=== PATIENT | female | born 1955 | race Caucasian/White ===

== ENCOUNTER → 2023-02-09 13:04 | Outpatient (BNVA) | payer MEDICARE, OTHER, SELFPAY | PROVIDERS: PCP Internal Medicine; Referring Provider Internal Medicine; Visit Provider Student in an Organized Health Care Education/Training Program | DX: S83.412A Sprain of medial collateral ligament of left knee, initial encounter (principal); S83.512A Sprain of anterior cruciate ligament of left knee, initial encounter; X58.XXXA Exposure to other specified factors, initial encounter | CPT/HCPCS: 99203 ==

== ENCOUNTER → 2023-03-09 12:52 | Outpatient (BNVA) | payer MEDICARE, OTHER, SELFPAY | PROVIDERS: PCP Internal Medicine; Referring Provider Internal Medicine; Visit Provider Student in an Organized Health Care Education/Training Program | DX: S83.512D Sprain of anterior cruciate ligament of left knee, subsequent encounter (principal); S83.412D Sprain of medial collateral ligament of left knee, subsequent encounter; X58.XXXD Exposure to other specified factors, subsequent encounter | CPT/HCPCS: 99213 ==

== ENCOUNTER → 2023-04-06 10:46 | Outpatient (BNVA) | payer MEDICARE, OTHER, SELFPAY | PROVIDERS: PCP Internal Medicine; Referring Provider Internal Medicine; Visit Provider Student in an Organized Health Care Education/Training Program | DX: S83.512A Sprain of anterior cruciate ligament of left knee, initial encounter (principal); S83.412A Sprain of medial collateral ligament of left knee, initial encounter; X58.XXXA Exposure to other specified factors, initial encounter | CPT/HCPCS: 99214 ==

== ENCOUNTER 2023-04-22 05:58 | Day surgery (SDC) | payer MEDICARE, OTHER, SELFPAY ==
[2023-04-22] VITALS (17 sets, daily range): BP systolic 100–180; BP diastolic 58–97; PULSE 44–60; RESP 1–18; TEMP 36–36.6; O2SAT 98–100; BMI 24.0
[2023-04-22] MEDS: Lactated Ringers 1,000 ML 30 ML IV (06:39)
--- NOTE | 2023-04-22 06:49 | W.ANESPRE ---
General Info Date of Service Date Performed: 04/22/23 Height: 5 ft Weight: 56 kg Body Mass Index (BMI): 24.0 Surgical Procedure: Operation Date: 04/22/23 08:10 Proposed Procedure Side Surgeon p Knee ACL Reconstruction (Allograft) Left Teo Nj MD Meds Allergies and Home Medications Allergies Allergy/AdvReac Type Severity Reaction Status Date / Time Sulfa (Sulfonamide Allergy Unknown Skin Rash Verified 04/22/23 06:16 Antibiotics) Home Medication Medication Instructions Recorded cholecalciferol (vitamin D3) 25 25 mcg PO DAILY 02/02/23 mcg (1,000 unit) capsule multivitamin 1 tab PO DAILY 02/02/23 aspirin 81 mg tablet,delayed 81 mg PO DAILY Prevent blood clot 04/22/23 release 14 days #14 tabs naproxen 250 mg tablet 250 - 500 mg (1 - 2 x 250 mg) PO 04/22/23 BID PRN Moderate pain #40 tabs tramadol 50 mg tablet 50 mg PO Q6H PRN moderate or 04/22/23 severe pain #12 tabs Current Visit Medications: Current Medications Generic Name Dose Route Start Last Admin Trade Name Freq PRN Reason Stop Dose Admin Ringer's Solution 1,000 mls @ 30 mls/hr 04/22/23 06:00 04/22/23 06:39 IV 05/21/23 23:59 30 mls/hr INFUSION ESTELA Administration Cefazolin Sodium/Dextrose 2 gm in 50 mls @ 100 mls/hr 04/22/23 06:00 Ancef Duplex IVPB 04/22/23 16:00 PREOP ESTLEA Tranexamic Acid/Sodium Chloride 100 mls @ 600 mls/hr 04/22/23 06:00 IVPB 04/22/23 16:00 PREOP ESTELA IV Miscellaneous Supplies 1 each 04/22/23 06:00 Iv Access IV 05/21/23 23:59 DIRECTED ESTELA Sodium Chloride 0 ml 04/22/23 06:00 Normal Saline Flush 10 Ml Syr IV 05/21/23 23:59 PRN PRN Sodium Chloride 0 ml 04/22/23 06:00 Normal Saline 10 Ml Vial IJ 05/21/23 23:59 DIRECTED PRN Sterile Water 0 ml 04/22/23 06:00 Water,Injection,Sterile 10 Ml Vial IJ 05/21/23 23:59 DIRECTED PRN PFSH Active Problems Active Problems: Problem Status Onset Code Tear of medial collateral ligament of left knee S83.412A Left ACL tear S83.512A Osteoporosis M81.0 Hyperlipidemia E78.5 Actinic keratosis L57.0 Medical History Medical History Squamous cell carcinoma of skin Tobacco Smoking/Tobacco Use Status: Never Alcohol Alcohol Intake: current Alcohol intake frequency: holidays/special occasions only Substance Use Substance use: Never Substance use type: does not use Vital Signs and Lab Results Vital Signs Most Recent Vital Signs in EMR: Most Recent Vital Signs Temp Pulse Resp BP Pulse Ox 36.2 C L 60 16 130/91 H 100 04/22/23 06:17 04/22/23 06:17 04/22/23 06:17 04/22/23 06:17 04/22/23 06:17 Lab Results Blood Type / Crossmatch: No Data to Display Complete Blood Count: No Data to Display Complete Metabolic Panel: No Data to Display Liver Function Panel: No Data to Display Coagulation Panel: No Data to Display Cardiac Panel: No Data to Display Arterial Blood Gas: No Data to Display Venous Blood Gas: No Data to Display Pancreas Panel: No Data to Display Thyroid Panel: No Data to Display Infectious Disease: No Data to Display Blood Cultures: No Data to Display Toxicology Panel: No Data to Display Anesthesia Assessment and Plan Anesthesia History Personal History: No History of Anesthesia Complications Family History: No Family History of Anesthesia Complications Exercise Tolerance Exercise Tolerance: Metabolic Equivalents>4 Pertinent Negatives Pertinent Negatives: No Symptoms of GERD, No Major Cardiovascular Symptoms or Complaints and No Major Pulmonary Symptoms or Complaints Cardiac & Pulmonary Exam Cardiac Exam: Normal S1/S2 Heart Sounds Pulmonary Exam: Clear Bilateral Breath Sounds Implantable Cardiac Device Does patient have a Pacemaker or an ICD?: No Airway Exam Known Difficult Airway: No Mallampati Class: 2 Mouth Opening: Normal (> 3cm) Thyromental Distance: Greater than 3 cm Neck Range of Motion: Full ROM Neck Circumference: Normal Teeth Condition: Normal Dentition ASA Classification ASA Score: ASA 2 Emergency Case?: No NPO Status NPO Status: NPO Clears >2 hours, Solids >8 hours Anesthesia Plan Resuscitation Status: Full Code Anesthesia Technique: General Anesthesia Airway Planned: Endotracheal Tube Pain Management: Surgeon and patient request nerve block Monitors Used: Standard Monitors and SedLine
--- NOTE | 2023-04-22 07:12 | PDOC.DSDIS_ITS ---
Date of service: 04/22/23 Time of Service: 14:00 Discharge Plan Disposition Patient Disposition: Home Condition: Stable Discharge Details Attending Provider: Teo Nj Primary Care Provider: Marcy Enciso Home Meds and New Rx's Prescriptions: New naproxen 250 mg tablet 250 - 500 mg PO BID PRN (Reason: Moderate pain) Qty: 40 0RF aspirin 81 mg tablet,delayed release (DR/EC) 81 mg PO DAILY 14 Days Qty: 14 0RF tramadol 50 mg tablet 50 mg PO Q6H PRN (Reason: moderate or severe pain) Qty: 12 0RF Continued multivitamin Tablet 1 tab PO DAILY cholecalciferol (vitamin D3) 25 mcg (1,000 unit) capsule 25 mcg PO DAILY Discharge Instructions Additional Instructions: Surgery: Left knee arthroscopy with ACL REPAIR and partial medial & lateral meniscectomy Activity: Weightbearing as tolerated. No crutches needed as soon as comfortable and stable on knee. Restore full knee extension as soon as possible. Perform early quad sets/quadriceps isometrics. Gradually increase flexion to tolerance. Recommend elevation to minimize swelling discomfort. Encourage ankle pumps and wiggle toes to improve circulation. A physical therapy prescription will be sent electronically to resume in 2 to 3 weeks. Prescriptions: Aspirin 81 mg take 1 daily to prevent a blood clot for 14 days Naproxen 250 mg take 1-2 every 12 hours with a meal as needed for moderate pain Tramadol 50 mg take every 6-8 hours as needed for severe pain You may use [id number] Tylenol (acetaminophen) as needed for mild pain. These pain medications may be taken all at once or in different combinations as needed. Also, recommend Colace (docusate) as a stool softener as surgery and pain medicine cause constipation. You may try [id number]-[id number] diphenhydramine (Benadryl) 25-50 mg nightly as a sleep aid Dressings: Leave dressing in place for 3 days. May then remove and leave open to air or cover incisions with Band-Aids. Leave the sticky Steri-Strips in buddy ce until they fall off or remove them after you shower. May shower after 5 days. Follow-up: 10-[address] Nj You may take off the leg compression stockings this evening at home. You may a lso leave them on a few days longer if you have a history of leg swelling or edema. Let us know right away if you develop any redness, drainage, fevers, chest pain, or trouble breathing. Do not drink alcohol or drive for at least 24 hours after anesthesia. Discharge Orders Discharge Orders: Discharge Order (Routine); Ordered 04/22/23 Ordered By: Zeus Westbrook DS: Diagnosis Discharge Diagnosis (1) Tear of medial collateral ligament of left knee: Status: Acute (2) Left ACL tear: Status: Acute (3) Acute medial meniscus tear of right knee: Status: Inactive (4) Degeneration of medial meniscus of left knee: Status: Acute (5) Degeneration of lateral meniscus of left knee: Status: Acute
[2023-04-22] MEDS: ceFAZolin 2 GM/50 ML BAG IVPB (08:19)
--- NOTE | 2023-04-22 08:47 | W.ANESNERVE ---
Nerve Block Single Injection Procedure Date and Time Date Performed: 04/22/23 Procedure Start: 07:31 Location Where Procedure Performed Procedure Location: Day Surgery Unit Reason Performed: Postoperative Analgesia Requesting Provider: Teo Nj Timeout Performed Timeout Performed: Yes Monitoring Used ECG, Blood Pressure, SpO2 and See EMR for corresponding vital signs Sterility Sterility: Hand Hygiene, Surgical Cap, Surgical Mask, Sterile Gloves and Chlorhexidine Sedation Given During Procedure Sedation Given (Indicate Dose Given): Versed IV Dose:: 1mg Patient Mental Status Patient Mental Status: Awake Nerve Block 1st Nerve Block: Laterality: Left Block Type: Adductor Canal Ultrasound Image Saved?: Yes Needle / Catheter Used: 80mm SonoPlex II Local Anesthetic Bolus (Indicate Dose Given): Lidocaine used for local infiltration of skin, Injected in 3-5ml increments after negative blood aspiration, Bupivacaine 0.25% Dose:: 10mL and Exparel Dose:: 10mL Additives (Indicate Dose Given): None Ultrasound: Sterile probe cover and gel used Nerve Stimulator: Supplement to Ultrasound use and No twitch or parasthesia noted < 0.5 mA Paresthesia: None Procedure Tolerated: No Complications Procedure Outcome: Successful Performed By: Muna Mckeon
[2023-04-22] MEDS: Bupivacaine 0.25% Pres-Free 30 ML VIAL (09:00)
[2023-04-22] MEDS: EPINEPHrine 10 MG/10 ML ML (09:57)
--- NOTE | 2023-04-22 10:02 | W.PM.OP ---
Date of service: 04/22/23 Time of Service: 08:30 Operative Note Operative Note DATE OF PROCEDURE: 04/22/23 PRE-OP DIAGNOSIS: Left knee: 1. Proximal ACL rupture 2. Lateral tibial plateau contusion 3. Nondisplaced proximal fibular fracture PROCEDURE: Left knee: 1. ACL REPAIR, CPT #41872 2. Partial medial & lateral meniscectomy, CPT #69856 SURGEON: Teo Nj NETWORKING TECHNOLOGY INSTRUCTOR: Zeus Westbrook ANESTHESIA TYPE: Local By Surgeon, General LMA/ETT and Primary Nerve Block Refer to Anesthesia Record ESTIMATED BLOOD LOSS: 5 TOURNIQUET TIME: 0 COMPLICATIONS: None Patient was transported to: PACU Patient's condition: stable Implants: Arthrex 4.75 mm bio composite SwiveLock Indications: Please see complete medical record for details. Findings: Exam under anesthesia: Full range of motion, stable varus and valgus stress in mild flexion. Positive increased Reid translation although relatively firm endpoint after about 8 mm of motion. Negative posterior drawer. Negative pivot shift/glide. Arthroscopic findings: Mild generalized chondromalacia. Moderate anterior and intercondylar synovitis. Mild white zone medial meniscus fraying type tearing. Largely healed vertical undersurface posterior horn lateral meniscus tearing with mild [place] fraying type tearing at the posterior horn root junction and in the central body. Procedure Description: In the operating room, general anesthesia was induced. The patient was positioned supine on the operating room table. All bony prominences were well-padded. Preoperative antibiotics were administered. The knee was prepped and draped in the usual sterile fashion. The correct patient, procedure, and side of the procedure were all verified prior to incision. Exam under anesthesia was performed. Local anesthetic containing epinephrine was infiltrated about the planned anteromedial, anterolateral, lateral distal femoral, and pretibial surgery sites. The standard high and tight anterolateral and anteromedial portals were established and a complete diagnostic arthroscopy was performed with relevant findings detailed above. A passport cannula was inserted in the anteromedial portal. The medial meniscus white zone fraying was inspected, the edges were somewhat rough and tearing was felt to be amenable to a small partial meniscectomy. The meniscal biter was used to debride the tearing type fraying to a stable still probably white zone margin through the central part of the medial meniscal body and the loose fragments were removed with a shaver which was also used to contour the meniscus to the best margin alternating working through and viewing through both portals. Similarly, in the [id number] position the lateral meniscus was inspected. There was an apparent healed posterior horn peripheral small vertical lateral meniscus tear. It probes stable. There is some fraying of the white zone near the root in the central body that was small and amenable to a similar trimming and contouring with the biter and shaver. In the intercondylar area, the redundant synovitis was removed. A small notchplasty was performed to allow best visualization of the lateral wall. The ACL was probed and had good tissue quality distally to mid substance. There was some bulbous area more proximally and high-grade partial tearing off the lateral wall. Various tissue liberator and elevators were used to ensure proper dissection of the full length of the ACL off the lateral wall in order to determine repair versus reconstruction. Given the setting including persistent subjective instability after ACL prehabilitation and isolated proximal partial rupture with good tissue quality, the decision was made to proceed with ACL repair over reconstruction. A small to moderate amount of ACL was left most posteriorly intact probably representing the anterior medial bundle. The knee scorpion was then used loaded with SutureTape FiberLink to place 2 cinch stitches about the bulbous strong part of the ACL and more proximally well incorporating the proximal ACL tissue. The knee was hyperflexed and the repair was confirmed to be appropriate to the lateral wall prepared footprint with the cuff grasper. The undersized punch was used given advanced age centrally in the exposed footprint with the prepare fibers plan to bring the tissue more proximally toward the back wall. The tap was then used and prepared socket confirmed. The repair sutures were then loaded on the SwiveLock anchor which was deployed with excellent fixation strength and good baptist of tension on the ACL. The repair was inspected under direct arthroscopic visualization and manually with anterior drawer and Reid, which were improved to about 5 mm of motion. Knee range of motion remained full and there was no impingement in full extension. Repair sutures were cut and safety stitches removed. The knee and both portals were copiously irrigated and then knee drained of arthroscopic fluid. 3-0 Monocryl was used to close the portals in a buried interrupted fashion. Mastisol, Steri-Strips, Xeroform, 4 x 4 gauze, and sterile soft roll was applied. The extremity was wrapped gently with an Eamon bandage. The patient awoke from anesthesia without complication and was transferred to the recovery room in a stable condition.
[2023-04-22] MEDS: Ketorolac 15 MG/ML VIAL IVP (10:17)
[2023-04-22] MEDS: oxyCODONE 5 MG TAB PO ×2 (11:03→12:38)
--- NOTE | 2023-04-22 12:08 | W.ANESPOSTOP ---
Postoperative Evaluation Date, Time and Location Date Performed: 04/22/23 Time Performed: 12:08 Patient Location: Day Surgery Unit Vital Signs Most Recent Imported Vital Signs: Most Recent Vital Signs Temp Pulse Resp BP Pulse Ox 36.2 C L 48 L 16 126/97 H 100 04/22/23 11:19 04/22/23 11:19 04/22/23 11:19 04/22/23 11:19 04/22/23 11:19 Pain Score Most Recent Pain Score: Most Recent Pain Score Pain Level 8 04/22/23 11:19 Assessment Mental Status: Awake (Alert & Oriented to Patient Baseline) Airway and Respiratory Function: Patent airway with normal (patient baseline) respiratory exam Cardiovascular Function: Hemodynamically Stable Hydration Status: Adequately Hydrated Nausea & Vomiting: No Nausea or Vomiting Pain: Pain is Moderate or Severe Postoperative Pain Management: Pain being addressed with medication Peripheral Nerve Block: Regional nerve block not resolved at time of post operative discharge
--- NOTE | 2023-04-22 12:41 | PT.INIE ---
PT Notes Physical Therapy Day Surgery Initial Evaluation Date: 04/22/2023 Referring Doctor: Zeus Westbrook MD PT Orders: PT CONSULT: S/P Ortho Surgery Precautions: Per Dr. Nj: Weightbearing as tolerated. No crutches needed as soon as comfortable and stable on knee. Restore full knee extension as soon as possible. Perform early quad sets/quadriceps isometrics. Gradually increase flexion to tolerance. Recommend elevation to minimize swelling discomfort. Encourage ankle pumps and wiggle toes to improve circulation. Patient Profile/Admitting Diagnosis: Rozina is a 67-year-old female with diagnosis of proximal ACL rupture, lateral tibial plateau contusion, and non-displaced proximal fibular fracture on the L and is status post ACL repair and partial medial and lateral meniscectomy on postoperative day 0. PMHX: All Active Problems (Updated 02/09/23 @ 14:05 by YANICK Faulkner) Tear of medial collateral ligament of left knee (Acute) Left ACL tear (Acute) Osteoporosis (Chronic) Hyperlipidemia (Acute) Actinic keratosis (Acute) Medical History (Updated 02/09/23 @ 14:05 by YANICK Faulkner) Squamous cell carcinoma of skin Social History/Home Situation: Lives with spouse in a private home with sick steps to enter with rails on both sides. Independent in all aspects of ADLs prior to surgery. Equipment Owned/DME: None Subjective: Reported discomfort in the L knee that minimally limited today's mobility assessment. Objective: General Observation: ACEwraps to left knee. Mental Status: A and O x 4 Pain: 3-4/10 in the L knee with weight bearing ROM: Right Lower Extremity: Hip flexion WFL. Hip abduction WFL. Knee flexion WFL. Ankle dorsiflexion WFL. Ankle plantarflexion WFL. Left Lower Extremity: Hip flexion WFL. Hip abduction WFL. Knee flexion 0-90 with 2-3/10 pain at end of range. Ankle dorsiflexion WFL. Ankle plantarflexion WFL. Strength: Right Lower Extremity: Hip flexors 5/5. Hip abductors 5/5. Knee flexors 5/5. Knee extensors 5/5. Ankle dorsiflexors 5/5. Ankle plantarflexors 5/5. Left Lower Extremity:Hip flexors 4-/5. Hip abductors 4-/5. Knee flexors 3-/5. Knee extensors 4-/5. Ankle dorsiflexors 4-/5. Ankle plantarflexors 54-5. Sensation: Intact as to pain and light pressure in B LE Bed Mobility/Transfers: Minima cueing provided for use of B hands as needed for support, movement sequence, AD management, and posture to reduce fall risk and minimize pain report Supine to sit stand by assist Sit to stand stand by assist Stand to sit stand by assist Bed to chair stand by assist Gait: Facilitated safe and correct performance of level surface ambulation covering a distance of 100 feet using front-wheeled walker with minimal verbal cueing provided for safe gait pattern, AD management, and posture. No SOB. No SOB. Standby assist provided. Stairs: Guided patient with safe and correct negotiation of 6 x 4 inch steps and 4 x 6 inch steps while holding onto bilateral rails with step-to gait pattern requiring only standby assist and minimal verbal cueing for limb advancement, gait pattern, posture, and hand placement. Balance: Static Sitting: Normal Dynamic Sitting: Normal Static Standing: Fair Dynamic Standing: Fair Special Tests: Mobility Limitations Standardized Measure [facility] AM-PAC 6 clicks Basic Mobility Inpatient Short Form: Raw Score: 24 CMS Score: 0% deficit Informed Consent/Education: Patient instructed in purpose of PT consult. Packet containing ACL repair exercise protocol as ordered by orthopedic surgeon has been given to patient. Education and training on initial set of exercises that can be done at home have been completed with patient. Access Code: [email or web address] URL: [email or web address] Date: 04/22/2023 Prepared by: Payal Hewitt Exercises - Supine Quadricep Sets - 1 x daily - 7 x weekly - 1 sets - 10 reps - 5 hold - Supine Heel Slide - 1 x daily - 7 x weekly - 1 sets - 10 reps - 5 hold - Supine Ankle Pumps - 1 x daily - 7 x weekly - 1 sets - 10 reps - 5 hold - Seated Toe Curl - 1 x daily - 7 x weekly - 1 sets - 10 reps - 5 hold - Seated March - 1 x daily - 7 x weekly - 1 sets - 10 reps - 5 hold - Gluteal Sets - 1 x daily - 7 x weekly - 1 sets - 10 reps - 5 hold Assessment: Patient presents with clinical signs and symptoms consistent with current/admitting diagnoses that have resulted to mobility limitations, gait instability, generalized weakness, and impairment of motor control as demonstrated by the following impairment level findings: 1. Decreased strength to left knee major muscle groups 2. Impaired standing balance 3. Limitation of joint range of motion in left knee Impairments are contributing to the following functional limitations: 1. Inability to safely ambulate without assistive device 2. Increase completion time for mobility ADL performance 3. Increased fall risk Patient is assessed as a 13499 moderate complexity based on the following: History: 67-year-old female with impairment level findings, functional limitations, and past medical history as indicated above Examination: Demonstrable impairment in strength, balance, and mobility level with underlying impairments and functional limitations as documented above Presentation: Evolving Decision Makin moderate complexity Goals: N/A. PT evaluation and 1-2 treatment sessions only for functional mobility training using recommended AD and for HEP instruction. Plan of Care/Treatment Plan: N/A. PT evaluation and 1-2 treatment session only for functional mobility training using recommended AD and for HEP instruction. DISCHARGE RECOMMENDATIONS: Home when medically cleared by orthopedic surgeon. Recommend outpatient PT services in order to optimize functional mobility outcomes and facilitate return to independent community ambulation without an assistive device. TREATMENT CODE/TIME: 9716 2 x 20 minutes for 1 unit, 9753 0 x 19 minutes for 1 unit (12:41-13:20). Thank you for the opportunity to participate in the care of this patient. Please sign an return this page within 30 days if you agree with the above POC. Thank you! Physician Signature Date [facility] Thank you for the opportunity to participate in the care of this patient. Payal Hewitt PT, DPT, CLT [facility] [place], [place]
== END 2023-04-22 14:09 | disposition home or self-care (01) ==
PROVIDERS: PCP Internal Medicine; Visit Provider Student in an Organized Health Care Education/Training Program
PROC: (CPT 29888; principal; 2023-04-22 08:00)
DX: S83.412A Sprain of medial collateral ligament of left knee, initial encounter (principal); S83.512A Sprain of anterior cruciate ligament of left knee, initial encounter; S83.241A Other tear of medial meniscus, current injury, right knee, initial encounter; M23.304 Other meniscus derangements, unspecified medial meniscus, left knee; M23.301 Other meniscus derangements, unspecified lateral meniscus, left knee
CPT/HCPCS: 29888; 29880; 76942; 97162; 97530; C9290; J0131; J0665; J0690; J1100; J1885; J2001; J2250; J2405; J2704; J3010

== ENCOUNTER → 2023-05-03 11:01 | Outpatient (BNVA) | payer MEDICARE, OTHER, SELFPAY | PROVIDERS: PCP Internal Medicine; Visit Provider Student in an Organized Health Care Education/Training Program | DX: S83.512D Sprain of anterior cruciate ligament of left knee, subsequent encounter (principal); X58.XXXD Exposure to other specified factors, subsequent encounter ==

== ENCOUNTER → 2023-06-21 10:13 | Outpatient (BNVA) | payer MEDICARE, OTHER, SELFPAY | PROVIDERS: PCP Internal Medicine; Referring Provider Internal Medicine; Visit Provider Student in an Organized Health Care Education/Training Program | DX: S83.512D Sprain of anterior cruciate ligament of left knee, subsequent encounter (principal); S83.412D Sprain of medial collateral ligament of left knee, subsequent encounter; X58.XXXD Exposure to other specified factors, subsequent encounter; M23.304 Other meniscus derangements, unspecified medial meniscus, left knee; M23.301 Other meniscus derangements, unspecified lateral meniscus, left knee ==

== ENCOUNTER → 2023-08-23 12:57 | Outpatient (BNVA) | payer MEDICARE, OTHER, SELFPAY | PROVIDERS: PCP Internal Medicine; Referring Provider Internal Medicine; Visit Provider Student in an Organized Health Care Education/Training Program | DX: M23.304 Other meniscus derangements, unspecified medial meniscus, left knee (principal); M23.301 Other meniscus derangements, unspecified lateral meniscus, left knee | CPT/HCPCS: 99213 ==